=== PATIENT | male | born 2000 | race Caucasian/White ===

== ENCOUNTER 2018-08-20 07:38 | Day surgery (SDC) | payer OTHER ==
[~2018-08-20] VITALS: Ht 175.3 cm; Wt 75.9 kg
[2018-08-20] VITALS (15 sets, daily range): BP systolic 108–134; BP diastolic 53–72; PULSE 88–114; RESP 11–25; Ht 175.3 cm; Wt 75.9 kg
--- NOTE | 2018-08-20 08:59 | HPN ---
Date/Time of Note Date/Time of Note DATE: 08/20/18 TIME: 08:59 Interval H&P Admission Note Pt. seen H&P reviewed: No system changes ALICE CHU MD Aug 20, 2018 08:59
[2018-08-20] MEDS ORDERED: ROCURONIUM 50 MG INJ ONE (09:51)
[2018-08-20] MEDS ORDERED: FENTAnyl 50 MCG/ML VIAL ONE (09:51)
[2018-08-20] MEDS ORDERED: MIDAZOLAM 1 MG/ML 2 ML INJ ONE (09:51)
[2018-08-20] MEDS ORDERED: CEFAZOLIN 1 GM INJ ONE (09:51)
[2018-08-20] MEDS ORDERED: PROPOFOL 20 ML ONE (09:51)
[2018-08-20] MEDS ORDERED: ONDANSETRON 4 MG INJ ONE (09:52)
[2018-08-20] MEDS ORDERED: DEXAMETHASONE 4 MG/ML 5 ML INJ ONE (09:52)
[2018-08-20] MEDS ORDERED: METOCLOPRAMIDE 10 MG INJ ONE (09:52)
[2018-08-20] MEDS ORDERED: KETOROLAC 30 MG INJ ONE (09:52)
[2018-08-20] MEDS ORDERED: LIDOCAINE 1%/EPI 30 ML INJ ONE (10:06)
[2018-08-20] MEDS ORDERED: BACITRACIN 0.9 GM OINT ONE (10:07)
[2018-08-20] MEDS ORDERED: PHENYLephrine 0.25% 15 ML NAS SPRAY ONE (10:07)
--- NOTE | 2018-08-20 10:19 | PREAC ---
Date/Time of Note Date/Time of Note DATE: 08/20/18 TIME: 10:17 Anesthesia Eval and Record Evaluation Time Pre-Procedure Interview DATE: 08/20/18 TIME: 10:17 Age 17 Sex male NPO: 8 hrs Preoperative diagnosis Nasal Bone Fracture Planned procedure Septoplasty and turbinate reduction Past Medical History Past Medical History: None Surgery & Anesthesia Issues No known issue Meds Anticoagulation: No Beta Yeny within 24 hr: No Reason Beta Yeny not given: Pt. not on B-Yeny No Active Prescriptions or Reported Meds Meds reviewed: Yes Allergies Coded Allergies: No Known Allergy (Unverified , 08/20/18) Allergies Reviewed: Yes Labs/Studies Labs Reviewed: Reviewed by anesthesiologist test: N/A Studies: ECG (n/a), CXR (n/a) Pre-procedure Exam Last vitals Vital Signs Date Temp Pulse Resp B/P (MAP) Pulse Ox O2 O2 Flow FiO2 Time Delivery Rate 08/20/18 96.5 95 16 108/72 99 Room Air 08:15 (84) Airway: Adequate mouth opening, Adequate thyromental dist Mallampati: Mallampati II Teeth: Normal Lung: Normal Heart: Normal ASA Physical Status ASA physical status: 1 Emergency: None Planned Anesthetic General/MAC: ETT Planned Pain Management Parenteral pain med Pre-operative Attestations Prior to commencing anesthesia and surgery, the patient was re-evaluated, there was verification of: *The patient's identity *The results of appropriate recent lab work and preoperative vital signs *The above evaluation not changing prior to induction *Anesthetic plan, risk benefits, alternative and complications discussed with patient/family; questions answered; patient/family understands, accepts and wishes to proceed. SHAHZAD BURNS MD Aug 20, 2018 10:19
[2018-08-20] MEDS ORDERED: LABETALOL HCL 20MG INJ IV PRN (10:30)
[2018-08-20] MEDS ORDERED: EPHEDrine SULFATE 50 MG/5 ML SYG IV PRN (10:30)
[2018-08-20] MEDS ORDERED: MEPERIDINE 25 MG INJ IV PRN (10:30)
[2018-08-20] MEDS ORDERED: ONDANSETRON 4 MG INJ IV PRN (10:30)
[2018-08-20] MEDS ORDERED: METOCLOPRAMIDE 10 MG INJ IV PRN (10:30)
[2018-08-20] MEDS ORDERED: OXYCODONE/ACETAMINOPHEN (5/325) TAB PO PRN (10:30)
[2018-08-20] MEDS ORDERED: DIPHENHYDRAMINE 50 MG INJ IV PRN (10:30)
[2018-08-20] MEDS ORDERED: FENTAnyl 50 MCG/ML VIAL IV PRN ×3 (10:30)
[2018-08-20] MEDS ORDERED: HYDROmorphONE 1 MG/5 ML IV SYRINGE IV PRN ×2 (10:30)
[2018-08-20] MEDS ORDERED: NEOSTIGMINE 3 MG/3 ML SYRINGE ONE (10:55)
[2018-08-20] MEDS ORDERED: GLYCOPYRROLATE 0.4 MG INJ ONE (10:55)
[2018-08-20] MEDS ORDERED: LABETALOL HCL 20MG INJ ONE (10:57)
--- NOTE | 2018-08-20 12:02 | SIPON ---
Date/Time of Note Date/Time of Note DATE: 08/20/18 TIME: 12:01 Operative Report Preoperative Diagnosis 1. Traumatic nasal deformity 2. Deviated septum 3. Nasal valve collapse 4. Turbinate hypertrophy Postoperative Diagnosis Same Operation/Procedure Performed 1. Septorhinoplasty 2. Nasal valve repair 3. Inferior turbinate reduction Surgeon see signature line elder assistant None Anesthesia: general Estimated blood loss: 10 - 50 ml's Transfusion Required none Specimen Nasal septum Grafts/Implants none Complications none ALICE CHU MD Aug 20, 2018 12:02
--- NOTE | 2018-08-20 12:07 | PAC ---
Date/Time of Note Date/Time of Note DATE: 08/20/18 TIME: 12:06 Post-Anesthesia Notes Post-Anesthesia Note Last documented vital signs Vital Signs Date Temp Pulse Resp B/P (MAP) Pulse Ox O2 O2 Flow FiO2 Time Delivery Rate 08/20/18 98.0 99 16 108/72 99 Face Mask 10 L 12:15 (84) Activity: WNL Respiratory function: WNL Cardiovascular function: WNL Mental status: Baseline Pain reasonably controlled: Yes Hydration appropriate: Yes Nausea/Vomiting absent: Yes SHAHZAD BURNS MD Aug 20, 2018 12:07
--- NOTE | 2018-08-20 12:10 | OPR ---
Date/Time of Note Date/Time of Note DATE: 08/20/18 TIME: 12:03 Operative Report Procedure Date: Aug 20, 2018 Preoperative Diagnosis 1. Traumatic nasal deformity 2. Deviated septum 3. Nasal valve collapse 4. Turbinate hypertrophy Postoperative Diagnosis Same Operation/Procedure Performed 1. Septorhinoplasty 2. Repair of nasal valve 3. Inferior turbinate reduction Surgeon see signature line Welder Boilermaker None Anesthesia Type: general Estimated Blood Loss: 10 - 50 ml's Transfusion none Specimen Nasal septum Grafts/Implants none Complications none Pt Condition Post Procedure: stable Disposition: PACU Indications The patient is a 17-year-old male with a history of nasal trauma in the past who presented with severe nasal obstruction, especially on the left side. Upon inspection in the office, the patient had "the worst" deviated septum I had ever seen. There was greater than the 90 degree bend of the septum from left to right involving the caudal septum. In addition, his upper lateral cartilages were folded and extremely medialized. I recommended that we reconstruct the nasal septum and then repair the nasal valve region with extended skid man grafts. The patient wished to proceed. The risks benefits and alternative surgery were discussed which include but not limited to bleeding, infection, scar, need for further surgery, septal perforation, numbness to the upper teeth, empty nose syndrome, poor cosmetic result and pain. He understood these and signed consent. Procedure Description After informed consent was obtained, the patient was brought back to the operating room. He was intubated by anesthesia and sedated. The bed was turned 90 degrees his eyes were protected and a head drape was placed in the nose was prepped and draped in usual sterile fashion. 1% lidocaine with epinephrine was injected into the nasal septum inferior turbinates and proposed sites of incisions. 15 blade was used to make a left hemitransfixion incision. A meticulous and tedious dissection was performed to elevate bilateral mucoperichondrial flaps. There was greater than a 90 degree bend of the 1 cm caudal septum from left to right. There was deviation of the maxillary crest to the left side. The quadrangular cartilage was then disarticulated from the maxillary crest and vomer bone. The deviated maxillary crest was reduced with the blunt end of the jordan elevator. I then opened the nose in a standard fashion with an inverted V columellar incision and bilateral marginal incisions. Once the nose was opened, I visualized the dorsal septum and the upper lateral cartilages from the dorsal septum. There was a 45 degree bend of the dorsal septum to the right side. I removed the inferior portion of the quadrangular cartilage leaving a 1-1/2 cm dorsal strut. Bilateral extended skid man grafts were then placed measuring 2 cm x 3 mm. These were secured with 5-0 PDS suture. The dorsal strut was then brought back to the left side using clocking sutures to the upper lateral cartilage. The sutures were placed with 5-0 PDS suture. I then created a new caudal strut using some of the harvested cartilage. This was secured to the dorsal septum using 5-0 PDS suture. The inferior portion of this cartilaginous graft was secured to the anterior nasal spine with a 4-0 PDS suture. Leftover cartilage was then placed back at the central portion of the septum. The mucosal incisions were then closed with 4-0 chromic suture. The skin incisions were closed with 6-0 Prolene suture. A stab incision was then made under the heads of both inferior turbinates. Mucoperiosteal flaps were elevated. Inferior turbinate bone was removed with the Talon forceps. Bipolar cautery was applied were needed. Silastic Alvarez splints coated in antibiotic ointment placed bilaterally and secured with a 3-0 Prolene suture. Steri-Strips were then placed on the nasal skin. But the stomach was then suctioned. The patient was handed over to anesthesia, extubated, and brought to the recovery room in stable condition. ALICE CHU MD Aug 20, 2018 12:10
[2018-08-20] MEDS: HYDROmorphONE 1 MG/5 ML IV SYRINGE IV PRN ×2 (12:26→12:33)
== END 2018-08-20 14:15 | disposition home or self-care (01) ==
LOC: SDS 07:38
PROVIDERS: ATTEND Otolaryngology
DX: J34.2 Deviated nasal septum (principal); J34.89 Other specified disorders of nose and nasal sinuses; J34.3 Hypertrophy of nasal turbinates
CPT/HCPCS: 30420; 88300; J0690; J1100; J1170; J1885; J2250; J2405; J2710; J2765; J3010; Z7512; Z7610